=== PATIENT | female | born 1990 | race Caucasian/White ===

== ENCOUNTER → 2020-05-02 10:07 | Outpatient (CLI) | payer OTHER, SELFPAY ==
[2020-05-02 11:18] LABS: Pregnancy Test Urine Negative (Negative)
[2020-05-02 12:03] LABS: Alanine Aminotransferase 10 IU/L (<35); Albumin 4.5 g/dL (3.5-5.0); Albumin Globulin Ratio 1.5 (1.0-2.8); Alkaline Phosphatase 90 U/L (38-126); Aspartate Aminotransferase 23 IU/L (14-36); BUN Creatinine Ratio 5.5 (6-22); Bilirubin Total 0.3 mg/dL (0.2-1.3); Blood Urea Nitrogen 4 mg/dL (7-17); Calcium 9.6 mg/dL (8.4-10.2); Carbon Dioxide 31 mmol/L (22-32); Chloride 103 mmol/L (98-107); Estimated Glomerular Filt Rate > 60.0 mL/min (>60); Glucose 87 mg/dL (70-100); HEMOLYSIS < 15 (0-50); Potassium 3.7 mmol/L (3.4-5.1); Sodium 140 mmol/L (137-145); Total Protein 7.5 g/dL (6.3-8.2)
[2020-05-02 12:18] LABS: Free T4, Direct Thyroxine 1.16 ng/dL (0.78-2.19)
[2020-05-02 12:32] LABS: Thyroid Stimulating Hormone 1.95 uIU/mL (0.47-4.68)
[2020-05-06 07:08] LABS: Lamotrigine Lamictal 12.1 ug/mL (2.0-20.0)
== END ==
PROVIDERS: PCP Psychiatry & Neurology Psychiatry; Referring Provider Psychiatry & Neurology Psychiatry; Visit Provider Psychiatry & Neurology Psychiatry
DX: F31.81 Bipolar II disorder (principal); F43.10 Post-traumatic stress disorder, unspecified
CPT/HCPCS: 36415; 80053; 80175; 81025; 84439; 84443; 90792